=== PATIENT | female | born 1970 | race African-American/Black ===

== ENCOUNTER 2021-12-03 19:23 | Emergency (ER) | payer SELFPAY ==
[2021-12-03] MEDS ORDERED: IBUPROFEN 600 MG TABLET (FP) PO ONE ×2 (19:35→19:41)
[2021-12-03 19:41] VITALS: BP 129/88; PULSE 86; RESP 15; TEMP 98.6; BMI 26.6
== END 2021-12-03 20:07 | disposition home or self-care (01) ==
LOC: FER 19:23
DX: S63.501A Unspecified sprain of right wrist, initial encounter (principal); X50.0XXA Overexertion from strenuous movement or load, initial encounter; W01.0XXA Fall on same level from slipping, tripping and stumbling without subsequent striking against object, initial encounter
CPT/HCPCS: 73090-TC-RT-FY; 73110-TC-RT-FY; 99284-25